=== PATIENT | female | born 1950 | race Caucasian/White ===

== ENCOUNTER → 2018-01-26 08:29 | Outpatient (CLI) | payer MEDICARE, SELFPAY ==
--- NOTE | 2018-01-26 08:32 | BI_ITS ---
MAMMOGRAPHY - BILATERAL SCREENING REASON FOR EXAM: Female, 67 years old. Routine annual screening examination. PERTINENT HISTORY: Non-contributory. Prior bilateral excisional breast biopsies. TECHNIQUE: Digital bilateral breast kristen (3D mammographic acquisition) in the CC and MLO projections. 2-D mediolateral oblique (MLO) and craniocaudad (CC) views of both breasts were obtained. CAD: Full Field Digital Mammography with Computer Added Detection was performed. COMPARISON: No comparison mammograms available at this time. If any prior films become available, an addendum to this report can be generated. FINDINGS: Breast Composition: The breasts are heterogeneously dense, which may obscure small masses. There are no dominant masses or suspicious calcifications. No other significant abnormalities are identified. BI/SCREENING MAMM (CAD), BILAT IMPRESSION: Negative screening mammogram. Yearly followup mammogram recommended. (A) ASSESSMENT CATEGORY: BIRADS Category 1: Negative. A letter regarding these results will be sent to the patient by the facility within 30 days. Approximately 10% of breast cancers are not detected by mammography. A normal mammogram should not delay biopsy of a clinically suspicious abnormality. [id number] Electronically Signed: Kvng Gonzalez MD at 11:05 EDT Tel [phone], Service support ,
--- NOTE | 2018-03-26 12:18 | WC ---
12/07/2017: Pre-Authorization faxed (15pp) to [facility] for adjunctive hyperbaric therapy. 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 Wiseman's office notified 12/16/17 with a request for him to write a Letter of Medical Necessity to be included in the appeal. During this time period, Dr. Wiseman's office contacted regarding the need for the above letter. 03/04/18: Letter of Medical Necessity received via fax. Medical Records compiled, Appeals letter composed. 03/12/18: 42 pages faxed to the [employer] Appeals Dept. @ 5:07 p.m. with receipt of same received @ 5:50 p.m. This fax included the following: Appeals Letter; Letter of Medical Necessity; Denial Letter; Demographics Sheet; Radiation Oncology Consult Notes; Hospital Discharge Summary; Radiation Treatment Summary; Follow-Up Office Notes; Hyperbaric Treatment Record from 2008; Wound History and Physical (HBO Consult-Dr. Ceja); Pan[employer]; HBO Treatment Orders, and Treatment plan. 03/26/18; Call made to [facility] for following-up on appeals sent 03/12. Informed [facility] has dismissed the appeal faxed March 12, 2018. The dismissal was based on timeliness (Greater than 60 days since the denial was issued (12/15/17)). Instructed to write a 'Letter of Reconsideration' to be sent to the Correspondence Department of [employer] [address] [address] [place] [address] I questioned the [employer] Rep. what the difference would be in this case, since ...they will dismiss it again! She said by sending it to this department, they are required to look at it. Reference # is [id number] (I will reference this number when corresponding with [employer]). I notified Dr. Wiseman's office immediately after being informed of their decision to dismiss before notifying you. I will try today to compose yet another letter and send it by 'snail mail' Thursday.
--- NOTE | 2018-05-03 09:20 | WC ---
Call received from Dr. Pablo Wiseman (Referring DMD, DDS) requesting update on insurance pre-authorization. Patient has now developed abcess with worsening condition. Brief update on insurance check was given. As previously noted, a Letter of Reconsideration was sent via certified mail directed to the [employer] Correspondence Department. This was sent 03/29/18. Stamp received 04/08/18 [place], [place]. Today's call [facility] until 04/15/18 (12 Business Days ago). Inquiry on how long review would take... told 30-60 days. This was made known as 'unacceptable'. Request made to expedite at this time; (5-7 days). Informed the agent the patient's condition is worsening awaiting HBO authorization. Reference # for this call: [id number] Dr. Wiseman's office informed of above. Requested current office notes from today's patient visit. Email also sent to the patient regarding the above.
--- NOTE | 2018-05-12 11:53 | WC ---
Addendum entered by Ildefonso Douglas 05/12/18 14:30: 24 pp of Medical Record Faxed to [facility] Pre-Authorization Department . Confirmation receipt received. Original Note: Addendum entered by Ildefonso Douglas 05/12/18 12:16: Agent contacting the Appeals Department regarding this case. New Pre-authorization is being opened in this case using all available information that has been previously sent. DOS is 05/12/18 through 07/19/18 with the proviso if more time is required, HMO will need contacted for the extension. Reference # [id number]. Plan is to 're-open' and submit a new Pre-Authorization for adjunctive HBO therapy. All Medical Record information pertaining to Ms. Garrett is to be resubmitted. Information to be included on the Fax Cover Sheet: Reference #; Patient Number; Facility Tax ID #; NPI #; CPT & ICD-10-CM Codes . 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 Informed Letter of Reconsideration is only used if services rendered have been denied (In this case, no services have been provided other than the Consultation). Requested information to perform a 'Qkkv-tu-Kcnr'. Referred to # . Informed Zjli-rg-Xrfm review is done within 5-days of original denialo
--- NOTE | 2018-05-21 10:33 | WC ---
Call received this @ 08:42 from [facility] regarding pre-authorization for adjunctive hyperbaric therapy. Request for services has been: Denied due to lack of support for services being requested Call reference #: [id number] Request for Ziad-en-Kqmx deadline is before Thursday05/25/18 @ 12:00 PM E-mail sent to Dr. Reynaldo Ceja, and phone call to referring physician; Dr. Pablo Wiseman, [place]. Aewb-rz-Mkhh review set up w/Dr. Wiseman Thursday @ 11:[address] Joe Garcia MD (General Surgeon).
--- NOTE | 2018-05-26 16:35 | WC ---
05/25/2018 Call received from Mrs. Garrett regarding HBO authorization. Mrs. Garrett was contacted by 'Jade' from [facility] and informed her HBO should not have been denied (Hpic-vn-Mrtg review with Dr. Joe Garcia MD and Dr. Franck Wiseman, DMD was scheduled @ 10:00 a.m.today after denial for Lack of Medical Support was issued 05/21/18. This was cancelled by the Insurance Co.: -- Information from [facility]th [facility] Committee Report; Hyperbaric Indications; pp.113-132 had been faxed to Dr. Garcia, and Dr. Wiseman in preparation for scheduled noyw-wg-iudr review). Authorization #[id number] w/DOS 05/24-06/23/18 has been given. VM message also received from Melissa' in Dr. Wiseman's office regarding the same message above. Dr. Wiseman's office notified that Mrs. Garrett will be starting HBO on 05/27 @ 08:00, and once daily for 30 sessions. Treatments planned and plotted out with 20th session to be on ThursdayJune 25. Oral surgery to be performed shortly after that so post-operative hyperbaric therapy can be completed before the end of the year. Projected date of completing therapy: 07/16/18. D.O.S will require adjusting to accommodate therapy dates. NOTE: This process began in late November.
--- NOTE | 2018-05-31 22:42 | PCM.HBO.PN ---
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 Progress: Today represents her second cycle and 3rd HBO treatment. Tolerance of hyperbaric oxygen therapy: Hyperbaric oxygen therapy was administered as per the facility's protocol. The patient tolerated hyperbaric oxygen therapy well without complaints or complications. Upon emergence from the hyperbaric chamber, the patient's vital signs remained stable. Patient was discharged in good condition. 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 The patient's mother at the age of 53 from a myocardial infarction. Smoking Status: Never smoker
== END ==
PROVIDERS: Family Provider Internal Medicine; PCP Internal Medicine; Visit Provider Internal Medicine
DX: Z12.31 Encounter for screening mammogram for malignant neoplasm of breast (principal)
CPT/HCPCS: 77063; 77067

== ENCOUNTER 2018-06-18 08:00 | Outpatient (RCR) | payer MEDICARE, SELFPAY ==
[2018-05-27 10:47] VITALS: BP 140/80; BP 141/82; PULSE 80; PULSE 86; RESP 18; TEMP 36; TEMP 36.1
--- NOTE | 2018-05-27 16:36 | PCM.HBO.PN ---
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 Progress: Today represents her first session in the cycle. Initial HBO treatment in 2008. She had 30 sessions without event. Tolerance of hyperbaric oxygen therapy: Hyperbaric oxygen therapy was administered as per the facility's protocol. The patient tolerated hyperbaric oxygen therapy well without complaints or complications. Upon emergence from the hyperbaric chamber, the patient's vital signs remained stable. Patient was discharged in good condition. 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 The patient's mother at the age of 53 from a myocardial infarction. Smoking Status: Never smoker Physical Exam Vital Signs Temp Pulse Resp BP 96.8 F L 86 18 141/82 H 05/27/18 10:47 05/27/18 10:47 05/27/18 10:47 05/27/18 10:47 General: Alert, Oriented x3, Cooperative, No apparent distress HEENT: Atraumatic, Normocephalic, TM's Clear Lungs: Normal air movement Psych/Mental Status: Normal Affect Assessment/Plan The patient tolerated hyperbaric oxygen therapy well, which will be continued as per the patient's medical plan.
--- NOTE | 2018-05-28 10:12 | PCM.HBO.PN ---
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 Progress: Today represents her first session in the cycle. Initial HBO treatment in 2008. She had 30 sessions without event. Tolerance of hyperbaric oxygen therapy: Hyperbaric oxygen therapy was administered as per the facility's protocol. The patient tolerated hyperbaric oxygen therapy well without complaints or complications. Upon emergence from the hyperbaric chamber, the patient's vital signs remained stable. Patient was discharged in good condition. 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 The patient's mother at the age of 53 from a myocardial infarction. Smoking Status: Never smoker Physical Exam Vital Signs Temp Pulse Resp BP 96.8 F L 86 18 141/82 H 05/27/18 10:47 05/27/18 10:47 05/27/18 10:47 05/27/18 10:47 Assessment/Plan The patient tolerated hyperbaric oxygen therapy well, which will be continued as per the patient's medical plan.
[2018-05-28 10:17] VITALS: RESP 16; TEMP 37.1
[2018-05-31 09:34] VITALS: BP 112/87; BP 128/68; PULSE 83; PULSE 86; RESP 16; RESP 18; TEMP 35.7; TEMP 37.2
[2018-06-01 11:02] VITALS: BP 134/92; BP 137/79; PULSE 83; PULSE 87; RESP 16; TEMP 36.2; TEMP 36.8
--- NOTE | 2018-06-01 12:18 | PCM.HBO.PN ---
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 Progress: The patient has previously undergone hyperbaric oxygen therapy in 2008. This represents the 4th such session in the current cycle. Tolerance of hyperbaric oxygen therapy: Hyperbaric oxygen therapy was administered as per the facility's protocol. The patient tolerated hyperbaric oxygen therapy well without complaints or complications. Upon emergence from the hyperbaric chamber, the patient's vital signs remained stable. Patient was discharged in good condition. 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 The patient's mother at the age of 53 from a myocardial infarction. Smoking Status: Never smoker Physical Exam Vital Signs Temp Pulse Resp BP 98.3 F 87 16 134/92 H 06/01/18 11:02 06/01/18 11:02 06/01/18 11:02 06/01/18 11:02 General: Alert, Oriented x3, Cooperative, No apparent distress, Well developed, Well nourished HEENT: Atraumatic, PERRLA, EOMI, Normocephalic Lungs: Normal air movement Psych/Mental Status: Normal Affect, Appropriate, Alert and oriented to time, place, person, mood and affect Assessment/Plan The patient appears to be tolerating hyperbaric oxygen therapy well, which will be continued as per the patient's medical plan.
[2018-06-02 10:01] VITALS: BP 132/86; PULSE 69; RESP 16; TEMP 36.9
--- NOTE | 2018-06-02 11:01 | PCM.HBO.PN ---
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 Progress: The patient has previously undergone hyperbaric oxygen therapy in 2008. This represents the 5th such session in the current cycle. Tolerance of hyperbaric oxygen therapy: Hyperbaric oxygen therapy was administered as per the facility's protocol. The patient tolerated hyperbaric oxygen therapy well without complaints or complications. Upon emergence from the hyperbaric chamber, the patient's vital signs remained stable. Patient was discharged in good condition. 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 The patient's mother at the age of 53 from a myocardial infarction. Smoking Status: Never smoker Physical Exam Vital Signs Temp Pulse Resp BP 98.4 F 69 16 132/86 H 06/02/18 10:01 06/02/18 10:01 06/02/18 10:01 06/02/18 10:01 General: Alert, Oriented x3, Cooperative, No apparent distress HEENT: Atraumatic, Normocephalic Lungs: Normal air movement Cardiovascular: Regular rate Psych/Mental Status: Normal Affect Assessment/Plan The patient appears to be tolerating hyperbaric oxygen therapy well, which will be continued as per the patient's medical plan.
[2018-06-03 12:03] VITALS: BP 134/78; BP 134/81; PULSE 79; PULSE 81; RESP 18; TEMP 37.2; TEMP 37.3
--- NOTE | 2018-06-03 12:42 | PCM.HBO.PN ---
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 Progress: The patient has previously undergone hyperbaric oxygen therapy in 2008. This represents the 6th such session in the current cycle. Tolerance of hyperbaric oxygen therapy: Hyperbaric oxygen therapy was administered as per the facility's protocol. The patient tolerated hyperbaric oxygen therapy well without complaints or complications. Upon emergence from the hyperbaric chamber, the patient's vital signs remained stable. Patient was discharged in good condition. 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 The patient's mother at the age of 53 from a myocardial infarction. Smoking Status: Never smoker Physical Exam Vital Signs Temp Pulse Resp BP 98.9 F 79 18 134/78 H 06/03/18 12:03 06/03/18 12:03 06/03/18 12:03 06/03/18 12:03 General: Alert, Oriented x3, Cooperative, No apparent distress HEENT: Atraumatic Lungs: Normal air movement Psych/Mental Status: Normal Affect Assessment/Plan The patient appears to be tolerating hyperbaric oxygen therapy well, which will be continued as per the patient's medical plan.
[2018-06-04 08:34] VITALS: BP 119/73; BP 143/92; PULSE 78; PULSE 84; RESP 16; RESP 18; TEMP 36.3; TEMP 36.9
--- NOTE | 2018-06-04 10:29 | PCM.HBO.PN ---
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 Progress: The patient has previously undergone hyperbaric oxygen therapy in 2008. This represents the 6th such session in the current cycle. Tolerance of hyperbaric oxygen therapy: Hyperbaric oxygen therapy was administered as per the facility's protocol. The patient tolerated hyperbaric oxygen therapy well without complaints or complications. Upon emergence from the hyperbaric chamber, the patient's vital signs remained stable. Patient was discharged in good condition. 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 The patient's mother at the age of 53 from a myocardial infarction. Smoking Status: Never smoker Physical Exam Vital Signs Temp Pulse Resp BP 97.3 F L 78 18 119/73 06/04/18 08:34 06/04/18 08:34 06/04/18 08:34 06/04/18 08:34 Assessment/Plan The patient appears to be tolerating hyperbaric oxygen therapy well, which will be continued as per the patient's medical plan.
[2018-06-07 08:45] VITALS: BP 121/84; BP 130/81; PULSE 83; PULSE 84; RESP 16; RESP 18; TEMP 36.3; TEMP 36.4
[2018-06-08 08:38] VITALS: BP 134/90; BP 140/85; PULSE 79; PULSE 80; RESP 18; TEMP 36.3; TEMP 36.7
--- NOTE | 2018-06-08 10:31 | PCM.HBO.PN ---
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 Progress: The patient has previously undergone hyperbaric oxygen therapy in 2008. This represents the 8th such session in the current cycle. Tolerance of hyperbaric oxygen therapy: Hyperbaric oxygen therapy was administered as per the facility's protocol. The patient tolerated hyperbaric oxygen therapy well without complaints or complications. Upon emergence from the hyperbaric chamber, the patient's vital signs remained stable. Patient was discharged in good condition. 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 The patient's mother at the age of 53 from a myocardial infarction. Smoking Status: Never smoker Physical Exam Vital Signs Temp Pulse Resp BP 97.3 F L 80 18 140/85 H 06/08/18 08:38 06/08/18 08:38 06/08/18 08:38 06/08/18 08:38 General: Alert, Oriented x3, Cooperative HEENT: Atraumatic Lungs: Clear to auscultation, Normal air movement Cardiovascular: Regular rate Psych/Mental Status: Normal Affect, Appropriate Assessment/Plan The patient appears to be tolerating hyperbaric oxygen therapy well, which will be continued as per the patient's medical plan. Code Visit 80175
--- NOTE | 2018-06-08 11:42 | PCM.HBO.PN ---
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 Progress: The patient has previously undergone hyperbaric oxygen therapy in 2008. This represents the 9th such session in the current cycle. Tolerance of hyperbaric oxygen therapy: Hyperbaric oxygen therapy was administered as per the facility's protocol. The patient tolerated hyperbaric oxygen therapy well without complaints or complications. Upon emergence from the hyperbaric chamber, the patient's vital signs remained stable. Patient was discharged in good condition. 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 The patient's mother at the age of 53 from a myocardial infarction. Smoking Status: Never smoker Physical Exam Vital Signs Temp Pulse Resp BP 97.3 F L 80 18 140/85 H 06/08/18 08:38 06/08/18 08:38 06/08/18 08:38 06/08/18 08:38 General: Alert, Oriented x3, Cooperative, No apparent distress, Well developed, Well nourished HEENT: Atraumatic, PERRLA, EOMI, Normocephalic Lungs: Normal air movement Psych/Mental Status: Normal Affect, Appropriate, Alert and oriented to time, place, person, mood and affect Assessment/Plan The patient appears to be tolerating hyperbaric oxygen therapy well, which will be continued as per the patient's medical plan.
[2018-06-09 08:30] VITALS: BP 133/94; BP 143/90; PULSE 78; PULSE 81; RESP 16; TEMP 37
--- NOTE | 2018-06-09 08:58 | PCM.HBO.PN ---
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 Progress: The patient has tolerated hyperbaric oxygen therapy well so far. Tolerance of hyperbaric oxygen therapy: Hyperbaric oxygen therapy was administered as per the facility's protocol. The patient tolerated hyperbaric oxygen therapy well without complaints or complications. Upon emergence from the hyperbaric chamber, the patient's vital signs remained stable. Patient was discharged in good condition. 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 The patient's mother at the age of 53 from a myocardial infarction. Smoking Status: Never smoker Physical Exam Vital Signs Temp Pulse Resp BP 97.3 F L 80 18 140/85 H 06/08/18 08:38 06/08/18 08:38 06/08/18 08:38 06/08/18 08:38 General: Alert, Oriented x3, Cooperative, No apparent distress HEENT: Atraumatic Lungs: Clear to auscultation Cardiovascular: Regular rate Psych/Mental Status: Normal Affect Assessment/Plan The patient appears to be tolerating hyperbaric oxygen therapy well, which will be continued as per the patient's medical plan.
[2018-06-14 09:09] VITALS: BP 126/81; PULSE 78; RESP 20; TEMP 37.4
--- NOTE | 2018-06-14 22:23 | PCM.HBO.PN ---
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 Progress: The patient has tolerated hyperbaric oxygen therapy well so far. Today represents her second cycle and 11th HBO treatment. Tolerance of hyperbaric oxygen therapy: Hyperbaric oxygen therapy was administered as per the facility's protocol. The patient tolerated hyperbaric oxygen therapy well without complaints or complications. Upon emergence from the hyperbaric chamber, the patient's vital signs remained stable. Patient was discharged in good condition. 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 The patient's mother at the age of 53 from a myocardial infarction. Smoking Status: Never smoker Physical Exam Vital Signs Temp Pulse Resp BP 99.3 F H 78 20 H 126/81 H 06/14/18 09:09 06/14/18 09:09 06/14/18 09:09 06/14/18 09:09
[2018-06-15 12:26] VITALS: BP 130/83; BP 138/82; PULSE 74; PULSE 83; RESP 16; RESP 18; TEMP 36.6; TEMP 37
--- NOTE | 2018-06-15 12:59 | PCM.HBO.PN ---
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 Progress: The patient has tolerated hyperbaric oxygen therapy well so far. Today's session represents the 12th such session of hyperbaric oxygen therapy. Tolerance of hyperbaric oxygen therapy: Hyperbaric oxygen therapy was administered as per the facility's protocol. The patient tolerated hyperbaric oxygen therapy well without complaints or complications. Upon emergence from the hyperbaric chamber, the patient's vital signs remained stable. Patient was discharged in good condition. 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 The patient's mother at the age of 53 from a myocardial infarction. Smoking Status: Never smoker Physical Exam Vital Signs Temp Pulse Resp BP 98.6 F 74 18 138/82 H 06/15/18 12:26 06/15/18 12:26 06/15/18 12:26 06/15/18 12:26 General: Alert, Oriented x3, Cooperative, No apparent distress, Well developed, Well nourished HEENT: Atraumatic, PERRLA, EOMI, Normocephalic Lungs: Normal air movement Psych/Mental Status: Normal Affect, Appropriate, Alert and oriented to time, place, person, mood and affect Assessment/Plan The patient appears to be tolerating hyperbaric oxygen therapy well, which will be continued as per the patient's medical plan.
--- NOTE | 2018-06-16 09:55 | PCM.HBO.PN ---
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 Progress: The patient has tolerated hyperbaric oxygen therapy well so far. Today's session represents the 13th such session of hyperbaric oxygen therapy. Tolerance of hyperbaric oxygen therapy: Hyperbaric oxygen therapy was administered as per the facility's protocol. The patient tolerated hyperbaric oxygen therapy well without complaints or complications. Upon emergence from the hyperbaric chamber, the patient's vital signs remained stable. Patient was discharged in good condition. 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 The patient's mother at the age of 53 from a myocardial infarction. Smoking Status: Never smoker Physical Exam Vital Signs Temp Pulse Resp BP 98.6 F 74 18 138/82 H 06/15/18 12:26 06/15/18 12:26 06/15/18 12:26 06/15/18 12:26 General: Alert, Oriented x3, Cooperative, No apparent distress HEENT: Atraumatic, Normocephalic Lungs: Clear to auscultation, Normal air movement Cardiovascular: Regular rate Psych/Mental Status: Normal Affect Assessment/Plan The patient appears to be tolerating hyperbaric oxygen therapy well, which will be continued as per the patient's medical plan.
[2018-06-16 10:20] VITALS: BP 121/76; PULSE 78; RESP 16; TEMP 37.2
--- NOTE | 2018-06-17 09:41 | PCM.HBO.PN ---
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 Progress: The patient has tolerated hyperbaric oxygen therapy well so far. Today's session represents the 14th such session of hyperbaric oxygen therapy. Tolerance of hyperbaric oxygen therapy: Hyperbaric oxygen therapy was administered as per the facility's protocol. The patient tolerated hyperbaric oxygen therapy well without complaints or complications. Upon emergence from the hyperbaric chamber, the patient's vital signs remained stable. Patient was discharged in good condition. 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 The patient's mother at the age of 53 from a myocardial infarction. Smoking Status: Never smoker Physical Exam Vital Signs Temp Pulse Resp BP 98.9 F 78 16 121/76 H 06/16/18 10:20 06/16/18 10:20 06/16/18 10:20 06/16/18 10:20 General: Alert, Oriented x3, Cooperative, No apparent distress HEENT: Atraumatic, Normocephalic, TM's Clear Lungs: Normal air movement Psych/Mental Status: Normal Affect Assessment/Plan The patient appears to be tolerating hyperbaric oxygen therapy well, which will be continued as per the patient's medical plan.
[2018-06-17 10:18] VITALS: BP 133/94; BP 136/94; PULSE 78; PULSE 80; RESP 16; TEMP 37; TEMP 37.1
--- NOTE | 2018-06-17 14:35 | WC ---
Call made to [facility] for extension to approved HBO Treatments. Original dates of service were for 05/24-06/23/18. Patient will not have 20th session until 06/25; Oral surgery scheduled for 06/28 with HBO Tx (10) to resume 06/29/18 through 07/16/18. Spoke w/Lesly from [facility]. Extension granted till Reference #[id number]
[2018-06-18 08:28] VITALS: BP 132/83; BP 139/97; PULSE 79; PULSE 84; RESP 16; RESP 18; TEMP 36.4; TEMP 36.6
--- NOTE | 2018-06-18 11:08 | PCM.HBO.PN ---
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 Progress: The patient has tolerated hyperbaric oxygen therapy well so far. Today's session represents the 14th such session of hyperbaric oxygen therapy. Tolerance of hyperbaric oxygen therapy: Hyperbaric oxygen therapy was administered as per the facility's protocol. The patient tolerated hyperbaric oxygen therapy well without complaints or complications. Upon emergence from the hyperbaric chamber, the patient's vital signs remained stable. Patient was discharged in good condition. 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 The patient's mother at the age of 53 from a myocardial infarction. Smoking Status: Never smoker Physical Exam Vital Signs Temp Pulse Resp BP 97.8 F 79 18 132/83 H 06/18/18 08:28 06/18/18 08:28 06/18/18 08:28 06/18/18 08:28 Assessment/Plan The patient appears to be tolerating hyperbaric oxygen therapy well, which will be continued as per the patient's medical plan.
== END 2018-06-18 23:59 ==
LOC: WC 08:00
PROVIDERS: Family Provider Internal Medicine; PCP Internal Medicine; Visit Provider Internal Medicine
DX: M27.2 Inflammatory conditions of jaws (principal); Y84.2 Radiological procedure and radiotherapy as the cause of abnormal reaction of the patient, or of later complication, without mention of misadventure at the time of the procedure; K21.9 Gastro-esophageal reflux disease without esophagitis; I10 Essential (primary) hypertension; E78.5 Hyperlipidemia, unspecified; Z85.819 Personal history of malignant neoplasm of unspecified site of lip, oral cavity, and pharynx; Z79.899 Other long term (current) drug therapy
CPT/HCPCS: 99183; G0277

== ENCOUNTER 2018-07-14 09:00 | Outpatient (RCR) | payer MEDICARE, SELFPAY ==
[2018-06-19 01:58] VITALS: BP 139/97; PULSE 84; RESP 16; TEMP 36.4
[2018-06-21 09:16] VITALS: BP 145/90; BP 146/83; PULSE 79; RESP 16; RESP 18; TEMP 36.7
[2018-06-22 09:48] VITALS: BP 123/76; BP 143/96; PULSE 78; PULSE 85; RESP 18; TEMP 36.8; TEMP 37.3
--- NOTE | 2018-06-22 12:14 | PCM.HBO.PN ---
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 Today's session represents the 17th such session of hyperbaric oxygen therapy. Tolerance of hyperbaric oxygen therapy: Hyperbaric oxygen therapy was administered as per the facility protocol. The patient tolerated hyperbaric oxygen therapy well, without complaints or complications. Upon emergence from the hyperbaric chamber, the patient's vital signs remained stable. The patient was discharged in good condition. 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 The patient's mother at the age of 53 from a myocardial infarction. Smoking Status: Never smoker Physical Exam Vital Signs Temp Pulse Resp BP 99.1 F 85 18 123/76 H 06/22/18 09:48 06/22/18 09:48 06/22/18 09:48 06/22/18 09:48 General: Alert, Oriented x3, Cooperative, No apparent distress, Well developed, Well nourished HEENT: Atraumatic, PERRLA, EOMI, Normocephalic Lungs: Normal air movement Psych/Mental Status: Normal Affect, Appropriate, Alert and oriented to time, place, person, mood and affect Assessment/Plan The patient appears to be tolerating hyperbaric oxygen therapy well, which will be continued as per the patient's medical plan.
--- NOTE | 2018-06-23 08:28 | PCM.HBO.PN ---
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 Today's session represents the 18th such session of hyperbaric oxygen therapy. Tolerance of hyperbaric oxygen therapy: Hyperbaric oxygen therapy was administered as per the facility protocol. The patient tolerated hyperbaric oxygen therapy well, without complaints or complications. Upon emergence from the hyperbaric chamber, the patient's vital signs remained stable. The patient was discharged in good condition. 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 The patient's mother at the age of 53 from a myocardial infarction. Smoking Status: Never smoker Physical Exam Vital Signs Temp Pulse Resp BP 99.1 F 85 18 123/76 H 06/22/18 09:48 06/22/18 09:48 06/22/18 09:48 06/22/18 09:48 General: Alert, Oriented x3, Cooperative, No apparent distress HEENT: Atraumatic, TM's Clear Lungs: Clear to auscultation, Normal air movement, No rhonchi, No wheeze, No rales Cardiovascular: Regular rate, Regular Rhythm, Normal S1, Normal S2, No murmurs Psych/Mental Status: Normal Affect, Appropriate, Alert and oriented to time, place, person, mood and affect Assessment/Plan The patient appears to be tolerating hyperbaric oxygen therapy well, which will be continued as per the patient's medical plan.
[2018-06-23 10:11] VITALS: BP 131/96; BP 141/94; PULSE 78; PULSE 89; RESP 16; TEMP 36.9; TEMP 37.2
[2018-06-24 08:22] VITALS: BP 126/76; BP 142/96; PULSE 80; PULSE 87; RESP 16; RESP 18; TEMP 36.5; TEMP 36.6
--- NOTE | 2018-06-24 08:45 | PCM.HBO.PN ---
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 Today's session represents the 19th such session of hyperbaric oxygen therapy. Tolerance of hyperbaric oxygen therapy: Hyperbaric oxygen therapy was administered as per the facility protocol. The patient tolerated hyperbaric oxygen therapy well, without complaints or complications. Upon emergence from the hyperbaric chamber, the patient's vital signs remained stable. The patient was discharged in good condition. 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 The patient's mother at the age of 53 from a myocardial infarction. Smoking Status: Never smoker Physical Exam Vital Signs Temp Pulse Resp BP 98.9 F 89 16 141/94 H 06/23/18 10:11 06/23/18 10:11 06/23/18 10:11 06/23/18 10:11 General: Alert, Oriented x3, Cooperative, No apparent distress HEENT: Atraumatic, TM's Clear Lungs: Clear to auscultation, Normal air movement, No rhonchi, No wheeze, No rales Cardiovascular: Regular rate, Regular Rhythm Psych/Mental Status: Normal Affect, Appropriate, Alert and oriented to time, place, person, mood and affect Assessment/Plan The patient appears to be tolerating hyperbaric oxygen therapy well, which will be continued as per the patient's medical plan.
[2018-06-25 08:42] VITALS: BP 114/84; BP 142/87; PULSE 73; PULSE 79; RESP 16; RESP 18; TEMP 36.3; TEMP 36.5
--- NOTE | 2018-06-25 09:37 | PCM.HBO.PN ---
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 Today's session represents the 19th such session of hyperbaric oxygen therapy. Tolerance of hyperbaric oxygen therapy: Hyperbaric oxygen therapy was administered as per the facility protocol. The patient tolerated hyperbaric oxygen therapy well, without complaints or complications. Upon emergence from the hyperbaric chamber, the patient's vital signs remained stable. The patient was discharged in good condition. 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 The patient's mother at the age of 53 from a myocardial infarction. Smoking Status: Never smoker Physical Exam Vital Signs Temp Pulse Resp BP 97.7 F L 73 18 114/84 H 06/25/18 08:42 06/25/18 08:42 06/25/18 08:42 06/25/18 08:42 Assessment/Plan The patient appears to be tolerating hyperbaric oxygen therapy well, which will be continued as per the patient's medical plan.
--- NOTE | 2018-06-29 08:14 | PCM.HBO.PN ---
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 Today's session represents the 21st such session of hyperbaric oxygen therapy. Tolerance of hyperbaric oxygen therapy: Hyperbaric oxygen therapy was administered as per the facility protocol. The patient tolerated hyperbaric oxygen therapy well, without complaints or complications. Upon emergence from the hyperbaric chamber, the patient's vital signs remained stable. The patient was discharged in good condition. 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 The patient's mother at the age of 53 from a myocardial infarction. Smoking Status: Never smoker Physical Exam Vital Signs Temp Pulse Resp BP 97.7 F L 73 18 114/84 H 06/25/18 08:42 06/25/18 08:42 06/25/18 08:42 06/25/18 08:42 General: Alert, Oriented x3, Cooperative, No apparent distress HEENT: Atraumatic, TM's Clear Lungs: Clear to auscultation, Normal air movement Cardiovascular: Regular rate, Regular Rhythm Psych/Mental Status: Normal Affect, Appropriate, Alert and oriented to time, place, person, mood and affect Assessment/Plan The patient appears to be tolerating hyperbaric oxygen therapy well, which will be continued as per the patient's medical plan.
[2018-06-29 10:41] VITALS: BP 119/77; BP 126/83; PULSE 75; PULSE 80; RESP 18; TEMP 36.9
--- NOTE | 2018-06-30 10:38 | PCM.HBO.PN ---
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 Tolerance of hyperbaric oxygen therapy: Hyperbaric oxygen therapy was administered as per the facility protocol. The patient tolerated hyperbaric oxygen therapy well, without complaints or complications. Upon emergence from the hyperbaric chamber, the patient's vital signs remained stable. The patient was discharged in good condition. 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 The patient's mother at the age of 53 from a myocardial infarction. Smoking Status: Never smoker Physical Exam Vital Signs Temp Pulse Resp BP 98.4 F 75 18 126/83 H 06/29/18 10:41 06/29/18 10:41 06/29/18 10:41 06/29/18 10:41 General: Alert, Oriented x3, Cooperative, No apparent distress HEENT: Atraumatic, Normocephalic Lungs: Normal air movement Cardiovascular: Regular rate Psych/Mental Status: Normal Affect Assessment/Plan The patient appears to be tolerating hyperbaric oxygen therapy well, which will be continued as per the patient's medical plan.
[2018-06-30 12:23] VITALS: BP 126/71; BP 137/89; PULSE 75; PULSE 79; RESP 16; TEMP 36.5; TEMP 36.7
[2018-07-01 09:51] VITALS: BP 123/79; BP 138/96; PULSE 84; PULSE 90; RESP 16; TEMP 36.6; TEMP 36.9
--- NOTE | 2018-07-01 11:28 | PCM.HBO.PN ---
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 Tolerance of hyperbaric oxygen therapy: Hyperbaric oxygen therapy was administered as per the facility protocol. The patient tolerated hyperbaric oxygen therapy well, without complaints or complications. Upon emergence from the hyperbaric chamber, the patient's vital signs remained stable. The patient was discharged in good condition. 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 The patient's mother at the age of 53 from a myocardial infarction. Smoking Status: Never smoker Physical Exam Vital Signs Temp Pulse Resp BP 98.4 F 84 16 123/79 H 07/01/18 09:51 07/01/18 09:51 07/01/18 09:51 07/01/18 09:51 General: Alert, Oriented x3, Cooperative, No apparent distress HEENT: Atraumatic, Normocephalic Lungs: Clear to auscultation, Normal air movement Cardiovascular: Regular rate Psych/Mental Status: Normal Affect Assessment/Plan The patient appears to be tolerating hyperbaric oxygen therapy well, which will be continued as per the patient's medical plan.
[2018-07-02 08:31] VITALS: BP 131/79; BP 153/92; PULSE 67; PULSE 71; RESP 16; TEMP 36.1; TEMP 36.6
--- NOTE | 2018-07-02 09:53 | PCM.HBO.PN ---
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 Tolerance of hyperbaric oxygen therapy: Hyperbaric oxygen therapy was administered as per the facility protocol. The patient tolerated hyperbaric oxygen therapy well, without complaints or complications. Upon emergence from the hyperbaric chamber, the patient's vital signs remained stable. The patient was discharged in good condition. 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 The patient's mother at the age of 53 from a myocardial infarction. Smoking Status: Never smoker Physical Exam Vital Signs Temp Pulse Resp BP 98.4 F 84 16 123/79 H 07/01/18 09:51 07/01/18 09:51 07/01/18 09:51 07/01/18 09:51 Assessment/Plan The patient appears to be tolerating hyperbaric oxygen therapy well, which will be continued as per the patient's medical plan.
[2018-07-05 10:23] VITALS: BP 118/84; BP 134/84; PULSE 77; PULSE 82; RESP 16; TEMP 36.6; TEMP 36.8
--- NOTE | 2018-07-05 19:17 | HBO.PN.PCM_ITS ---
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 Today represents her second cycle and 25th HBO treatment. Tolerance of hyperbaric oxygen therapy: Hyperbaric oxygen therapy was administered as per the facility's protocol. The patient tolerated hyperbaric o xygen therapy well without complaints or complications. Upon emergence from the hyperbaric chamber, the patient's vital signs remained stable. Patient was discharged in good condition. 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 The patient's mother at the age of 53 from a myocardial infarction. Smoking Status: Never smoker Physical Exam Vital Signs Temp Pulse Resp BP 98.2 F 82 16 118/84 H 07/05/18 10:23 07/05/18 10:23 07/05/18 10:23 07/05/18 10:23
[2018-07-06 08:16] VITALS: BP 117/79; BP 123/90; PULSE 80; RESP 16; TEMP 36.4; TEMP 37.1
--- NOTE | 2018-07-06 12:47 | PCM.HBO.PN ---
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 Today's session represents the 26th such session of hyperbaric oxygen therapy. Tolerance of hyperbaric oxygen therapy: Hyperbaric oxygen therapy was administered as per the facility protocol. The patient tolerated hyperbaric oxygen therapy well, without complaints or complications. Upon emergence from the hyperbaric chamber, the patient's vital signs remained stable. The patient was discharged in good condition. 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 The patient's mother at the age of 53 from a myocardial infarction. Smoking Status: Never smoker Physical Exam Vital Signs Temp Pulse Resp BP 98.7 F 80 16 117/79 07/06/18 08:16 07/06/18 08:16 07/06/18 08:16 07/06/18 08:16 General: Alert, Oriented x3, Cooperative, No apparent distress, Well developed, Well nourished HEENT: Atraumatic, PERRLA, EOMI, Normocephalic Lungs: Normal air movement Psych/Mental Status: Normal Affect, Appropriate, Alert and oriented to time, place, person, mood and affect Assessment/Plan The patient appears to be tolerating hyperbaric oxygen therapy well, which will be continued as per the patient's medical plan.
[2018-07-07 08:23] VITALS: BP 128/75; BP 130/94; PULSE 87; PULSE 91; RESP 16; RESP 18; TEMP 36.6; TEMP 36.8
--- NOTE | 2018-07-07 08:52 | PCM.HBO.PN ---
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 Today's session represents the 27th such session of hyperbaric oxygen therapy. Tolerance of hyperbaric oxygen therapy: Hyperbaric oxygen therapy was administered as per the facility protocol. The patient tolerated hyperbaric oxygen therapy well, without complaints or complications. Upon emergence from the hyperbaric chamber, the patient's vital signs remained stable. The patient was discharged in good condition. 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 The patient's mother at the age of 53 from a myocardial infarction. Smoking Status: Never smoker Physical Exam Vital Signs Temp Pulse Resp BP 98.7 F 80 16 117/79 07/06/18 08:16 07/06/18 08:16 07/06/18 08:16 07/06/18 08:16 General: Alert, Oriented x3, Cooperative, No apparent distress HEENT: Atraumatic, Normocephalic Lungs: Normal air movement Psych/Mental Status: Normal Affect Assessment/Plan The patient appears to be tolerating hyperbaric oxygen therapy well, which will be continued as per the patient's medical plan.
[2018-07-08 08:25] VITALS: BP 113/75; BP 125/78; PULSE 78; PULSE 80; RESP 16; RESP 18; TEMP 36.8
--- NOTE | 2018-07-08 08:49 | PCM.HBO.PN ---
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 Today's session represents the 28th such session of hyperbaric oxygen therapy. Tolerance of hyperbaric oxygen therapy: Hyperbaric oxygen therapy was administered as per the facility protocol. The patient tolerated hyperbaric oxygen therapy well, without complaints or complications. Upon emergence from the hyperbaric chamber, the patient's vital signs remained stable. The patient was discharged in good condition. 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 The patient's mother at the age of 53 from a myocardial infarction. Smoking Status: Never smoker Physical Exam Vital Signs Temp Pulse Resp BP 98.3 F 80 18 113/75 07/08/18 08:25 07/08/18 08:25 07/08/18 08:25 07/08/18 08:25 General: Alert, Oriented x3, Cooperative, No apparent distress HEENT: Atraumatic, Normocephalic, TM's Clear Lungs: Normal air movement Psych/Mental Status: Normal Affect Assessment/Plan The patient appears to be tolerating hyperbaric oxygen therapy well, which will be continued as per the patient's medical plan.
[2018-07-09 08:23] VITALS: BP 137/90; BP 146/95; PULSE 87; PULSE 93; RESP 16; RESP 18; TEMP 36.5; TEMP 36.9
--- NOTE | 2018-07-09 12:14 | PCM.HBO.PN ---
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 Today's session represents the 28th such session of hyperbaric oxygen therapy. Tolerance of hyperbaric oxygen therapy: Hyperbaric oxygen therapy was administered as per the facility protocol. The patient tolerated hyperbaric oxygen therapy well, without complaints or complications. Upon emergence from the hyperbaric chamber, the patient's vital signs remained stable. The patient was discharged in good condition. 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 The patient's mother at the age of 53 from a myocardial infarction. Smoking Status: Never smoker Physical Exam Vital Signs Temp Pulse Resp BP 98.5 F 93 18 137/90 H 07/09/18 08:23 07/09/18 08:23 07/09/18 08:23 07/09/18 08:23 Assessment/Plan The patient appears to be tolerating hyperbaric oxygen therapy well, which will be continued as per the patient's medical plan.
[2018-07-14 08:32] VITALS: BP 138/80; BP 150/89; PULSE 81; PULSE 90; RESP 16; TEMP 36.5; TEMP 36.7
--- NOTE | 2018-07-14 10:46 | PCM.HBO.PN ---
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 Today represents her final treatment in the cycle. Tolerance of hyperbaric oxygen therapy: Hyperbaric oxygen therapy was administered as per the facility protocol. The patient tolerated hyperbaric oxygen therapy well, without complaints or complications. Upon emergence from the hyperbaric chamber, the patient's vital signs remained stable. The patient was discharged in good condition. 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 The patient's mother at the age of 53 from a myocardial infarction. Smoking Status: Never smoker Physical Exam Vital Signs Temp Pulse Resp BP 97.7 F L 81 16 138/80 H 07/14/18 08:32 07/14/18 08:32 07/14/18 08:32 07/14/18 08:32 General: Alert, Oriented x3, Cooperative, No apparent distress HEENT: Atraumatic, Normocephalic Lungs: Normal air movement Cardiovascular: Regular rate Psych/Mental Status: Normal Affect Assessment/Plan The patient tolerated hyperbaric oxygen therapy well without any concerns. Today represents her final treatment in this cycle. Continue follow-up with her physicians. Advised to call with any questions or concerns.
--- OUTSIDE RECORDS SUMMARY | 2018-08-14 08:25 | XMS RPT_ITS ---
:1950 Author Organization OHIP Support Name Relationship Address Phone DYLAN GALLEGO Unavailable [address] + [place] [address] R Unavailable Unavailable Unavailable DYLAN GALLEGO Unavailable [address] + [place] [address] R Unavailable Unavailable Unavailable DYLAN GALLEGO Unavailable [address] + [place] [address] R Unavailable Unavailable Unavailable DYLAN GALLEGO Unavailable [address] + [place] [address] R Unavailable Unavailable Unavailable DYLAN GALLEGO Unavailable [address] + [place] [address] R Unavailable Unavailable Unavailable DYLAN GALLEGO Unavailable [address] + [place] [address] R Unavailable Unavailable Unavailable DYLAN GALLEGO Unavailable [address] + [place] [address] R Unavailable Unavailable Unavailable DYLAN GALLEGO Unavailable [address] + [place] [address] R Unavailable Unavailable Unavailable DYLAN GALLEGO Unavailable [address] + [place] [address] R Unavailable Unavailable Unavailable DYLAN GALLEGO Unavailable [address] + [place] [address] R Unavailable Unavailable Unavailable DYLAN GALLEGO Unavailable [address] + [place] [address] R Unavailable Unavailable Unavailable DYLAN GALLEGO Unavailable [address] + [place] [address] R Unavailable Unavailable Unavailable GALLEGO, DYLAN Unavailable [address] + [place] [address] R Unavailable Unavailable Unavailable GALLEGOGHAZALAEN Unavailable [address] + [place] [address] R Unavailable Unavailable Unavailable GHAZALA GALLEGOEN Unavailable [address] + [place] [address] R Unavailable Unavailable Unavailable DYLAN GALLEGO Unavailable [address] + [place] [address] R Unavailable Unavailable Unavailable Care Team Providers Name Role Phone GANTA, LORI Attending Unavailable GANTA, LORI Referring Unavailable GANTA, LORI Referring Unavailable GANTA, LORI Referring Unavailable Oleghe, Efewongbe Attending Unavailable Oleghe, Efewongbe Referring Unavailable Oleghe, Efewongbe Attending Unavailable Oleghe, Efewongbe Referring Unavailable Candy Pruitt Attending Unavailable Oleghe, Efewongbe Referring Unavailable Candy Pruitt Attending Unavailable Oleghe, Efewongbe Referring Unavailable Reynaldo Ceja Attending Unavailable Ganta, Lori Primary Care Unavailable Ganta, Lori Attending Unavailable Ganta, Lori Primary Care Unavailable Oleghe, Efewongbe Attending Unavailable Ganta, Lori Primary Care Unavailable Jessica Barnett Attending Unavailable Ganta, Lori Primary Care Unavailable Oleghe, Efewongbe Consulting Unavailable Oleghe, Efewongbe Attending Unavailable Oleghe, Efewongbe Referring Unavailable Oleghe, Efewongbe Attending Unavailable Oleghe, Efewongbe Referring Unavailable Oleghe, Efewongbe Attending Unavailable Oleghe, Efewongbe Referring Unavailable Oleghe, Efewongbe Attending Unavailable Oleghe, Efewongbe Referring Unavailable Oleghe, Efewongbe Attending Unavailable Ganta, Lori Primary Care Unavailable Candy Pruitt Attending Unavailable Ganta, Lori Primary Care Unavailable Oleghe, Efewongbe Consulting Unavailable Joe De Jesus Attending Unavailable Ganta, Lori Primary Care Unavailable Ganta, Lori Consulting Unavailable Joe De Jesus Attending Unavailable Ganta, Lori Primary Care Unavailable Oleghe, Efewongbe Consulting Unavailable PROBLEMS PROBLEMS DATE TYPE CONDITION / CODE ATTENDING STATUS SOURCE 07/07/2018 Unknown M27.8 - Other Pruitt, Active [facility] specified diseases [facility] M27.8(ICD-10) Repository 07/07/2018 Unknown 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, 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, Hospital unspecified bone / Repository M87.30(ICD-10) 06/29/2018 Unknown 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, 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 / [facility] M27.2(ICD-10) Hospital Repository 06/27/2018 Unknown Z12.31 - Encounter Joe De Jesus Active [facility] for screening [facility] mammogram for Hospital malignant neoplasm Repository of breast / Z12.31(ICD-10) 10/09/2015 Active Postprocedural NA Active [facility] hypothyroidism / [facility] Main E89.0(ICD-10) [place] Repository 12/07/2017 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 [facility] Main therapy / [facility] Z79.899(ICD-10) Repository 12/07/2017 Active Unknown / LORI PERALTA Active [facility] UNK(Unknown) [facility] Main [place] Repository PROCEDURES PROCEDURES No Procedure Records FoundRESULTS RESULTS CNPTOUTREACH Observed: 06/01/2018 Status: COMPLETED Source: [place] 12:00 AM [facility]INIC MAIN [facility]US REPOSITORY Patient Outreach (FAMPST) GARRY GALLEGO ([id number]) 1950 F Date Time Provider Department 06/01/18 LORI PERALTA FAMPST During your visit today, we recorded the following information about you: Allergies As of Date: 06/01/2018 Noted Allergy Reaction FOSAMAX (ALENDRONATE SODIUM) 10/16/2006 5 - Intolerance 8 - GI Upset ACTONEL (RISEDRONATE SODIUM) 01/22/2016 17 - Myalgia Comments: Feels sick on the medication and does not want to take it. Patient denies taking this medication as of 04/16/2016 BONIVA (IBANDRONATE) 05/02/2008 8 - GI Upset Date Reviewed: 12/07/2017 Reviewed by: Ivory Thomson LPN - Fully Assessed Visit Diagnosis:Medication management [Z79.899] Order(s):BASIC METABOLIC PNL [SQBMP] Order #: [id number] FUTURE Prescriptions as of 06/01/2018 Sig: LEVOTHYROXINE 75 MCG TABLET Take 1 tablet by mouth once d* RANITIDINE 150 MG CAPSULE TAKE ONE CAPSULE BY MOUTH AT * SIMVASTATIN 20 MG TABLET Take 1 tablet by mouth daily * X AMITRIPTYLINE 50 MG TABLET Take 1 tablet by mouth daily * X AMLODIPINE 5 MG TABLET Take 1 tablet by mouth once d* Problem List As Of Date 06/01/2018 Noted Resolved EAR AND HEARING EXAM [V72.1] INVALID FOR* Personal history of malignant neoplasm of other*INVALID FOR*12/02/2013 Radiotherapy follow-up examination [Z09] INVALID FOR*12/02/2013 Chemotherapy follow-up examination [Z09] INVALID FOR*12/02/2013 Malignant neoplasm of cheek mucosa (HCC) [C06.0]INVALID FOR*12/02/2013 Secondary and unspecified malignant neoplasm of*INVALID FOR*12/02/2013 Other Speech Disturbance [R47.89] INVALID FOR* Postablative hypothyroidism [E89.0] INVALID FOR* More... More... 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 History of cancer surgery [Z98.890] INVALID FOR* Personal history of radiation therapy [Z92.3] INVALID FOR* MALIG AMARA LYMPH-HEAD/NECK [C77.0] INVALID FOR*10/09/2015 Essential hypertension [I10] INVALID FOR* More... Osteoporosis [M81.0] INVALID FOR* More... Gastroesophageal reflux disease without esophag*INVALID FOR* More... Encounter Status:Closed by [employer], PRODUSER on 07/02/18 TSH Collected: 02/08/2018 Status: F Source: [place] 1:46 PM [facility] MAIN CAMPUS REPOSITORY TYPE CODE TESTS RESULT OUT OF RANGE REFERENCE UNITS LAB TSH 0.400-5.500 uU/mL TSH 2.840 Performed By: #### TSH #### [facility] [address] [place] [address] SCREENING MAMM (CAD), Observed: 01/26/2018 Status: F Source: [place] 8:32 AM [facility] REPOSITORY [facility] [address] [place] [address] SCREENING MAMM (CAD), BILAT MR#: [id number] Acct: [id number] Name: GARRY GALLEGO Rep #: [id number] : 1950 F 67 From: Kvng Gonzalez MD PCP: Lori Peralta MD Status: REG CLI Study: SCREENING MAMM (CAD), BILAT Date of Exam: 01/26/18 Exam# [id number] Ordering Dr: Lori Peralta MD ADDENDUM by Kvng Gonzalez MD on 01/28/18 at 1518 BI/SCREENING MAMM (CAD), BILAT 01/28/18 1525 Date cc: Lori Peralta MD * Signed ADDENDUM by Kvng Gonzalez MD on 01/28/18 at 1518 ADDENDUM This is an addendum report. Prior ocular examination dated June 30, 2016 has been made available. Stable benign-appearing bilateral axillary lymph nodes. There has been no change since prior study. Electronically Signed: Kvng Gonzalez MD at 15:18 EDT Tel [phone], Service support , 01/28/18 1518 Date cc: Lori Peralta MD * Signed MAMMOGRAPHY - BILATERAL SCREENING REASON FOR EXAM: Female, 67 years old. Routine annual screening examination. PERTINENT HISTORY: Non-contributory. Prior bilateral excisional breast biopsies. TECHNIQUE: Digital bilateral breast kristen (3D mammographic acquisition) in the CC and MLO projections. 2-D mediolateral oblique (MLO) and craniocaudad (CC) views of both breasts were obtained. CAD: Full Field Digital Mammography with Computer Added Detection was performed. COMPARISON: No comparison mammograms available at this time. If any prior films become available, an addendum to this report can be generated. FINDINGS: Breast Composition: The breasts are heterogeneously dense, which may obscure small masses. There are no dominant masses or suspicious calcifications. No other significant abnormalities are identified. BI/SCREENING MAMM (CAD), BILAT IMPRESSION: Negative screening mammogram. Yearly followup mammogram recommended. (A) ASSESSMENT CATEGORY: BIRADS Category 1: Negative. A letter regarding these results will be sent to the patient by the facility within 30 days. Approximately 10% of breast cancers are not detected by mammography. A normal mammogram should not delay biopsy of a clinically suspicious abnormality. [id number] Electronically Signed: Kvng Gonzalez MD at 11:05 EDT Tel [phone], Service support , CC: Lori Peralta MD [employer]: Signed LIPID PANEL, BASIC Collected: 12/07/2017 Status: F Source: [place] 9:50 AM [facility] MAIN CAMPUS REPOSITORY TYPE CODE TESTS RESULT OUT OF REFERENCE UNITS RANGE LAB CHOL <200 mg/dL Cholesterol 148 Result Comment: <200 mg/dL, Desirable 200-239 mg/dL, Borderline high >239 mg/dL, High LAB TRIGLY <150 mg/dL Triglyceride 77 Result Comment: <150 mg/dL, Normal 150-199 mg/dL, Borderline high 200-499 mg/dL, High >499 mg/dL, Very high LAB HDL >39 mg/dL HDL-Cholesterol 74 Result Comment: 40-59 mg/dL, Acceptable >59 mg/dL, High: Negative risk factor for coronary heart disease <40 mg/dL, Low: Positive risk factor for coronary heart disease LAB LDL <100 mg/dL LDL-Cholesterol 59 Result Comment: <100 mg/dL, Optimal 100-129 mg/dL, Near optimal/above optimal 130-159 mg/dL, Borderline high 160-189 mg/dL, High >189 mg/dL, Very high Secondary prevention optimal LDL Cholesterol levels are recommended to be < 70 mg/dL LAB NONHDL <130 mg/dL Non HDL Cholesterol 74 Result Comment: <130 mg/dL, Optimal 130-159 mg/dL, Near optimal/above optimal 160-189 mg/dL, Borderline high 190-219 mg/dL, High >219 mg/dL, Very high Secondary prevention optimal non HDL Cholesterol levels are recommended to be < 100 mg/dL LAB FT hrs Fasting Time 12 LAB VLDL <30 mg/dL VLDL Cholesterol 15 LAB TCHDL <5.10 TC:HDL Ratio 2.00 LAB LDLHDL <2.54 LDL:HDL Ratio 0.80 Result Comment: Reference: 1. National Cholesterol Education Program ATP III Guideline At-A-Glance Quick Desk Reference: National Heart, Lung, and Blood [place]. National Institutes of Health. 2001: NIH Publication No. 01-3305. 2. An International Atherosclerosis Society position paper: global recommendations for the management of dyslipidemia: executive summary, Atherosclerosis. 2014: 232(2):410-413. Performed By: #### LIPB #### [facility] [address] [id number] TSH Collected: 12/07/2017 Status: F Source: [place] 9:50 AM [facility] REPOSITORY TYPE CODE TESTS RESULT OUT OF RANGE REFERENCE UNITS LAB TSH 0.400-5.500 uU/mL High TSH 12.380 Performed By: #### TSH #### [facility] [address] [place], [place] [address] PROGRESS Observed: 12/07/2017 Status: COMPLETED Source: [place] 9:13 AM [facility] REPOSITORY HNO ID: [id number] Author: Lori Peralta Service: (none) Author Type: Physician Type: Progress Notes Filed: 12/07/2017 10:44 AM Note Text: Reason for Visit Patient presents with: Established Patient: 6 mnth follow up- refills Garry Gallego is a 67 year old female who presents here today for Above Complaints.. Health Maintenance DTAP,TDAP,TD(1 - Tdap) MAMMOGRAM HPI She had severe radiation in the past so she would have to have a scan every 4 months due to dental issues.... So she decided not to do the risedronate. She will be undergoing hyperbaric treatment She has got a pill box and gotten herself organized and will start taking her pills would need to recheck the tsh. Has given up sugars and milk products, her reflux is resovled. ? BP is well controlled on current regimen of medicines which is tolerated well. No significant side effects. Lipids are normal, reviewed test results with patient Who takes medications regularly and has no side effects. No problem-specific Assessment AND Plan notes found for this encounter. PAST MEDICAL HISTORY Diagnosis Date - Chemotherapy follow-up examination - EAR AND HEARING EXAM 08/20/2005 - Hyperlipidemia - Hypertension - Hypothyroidism s/p radioactive iodine for hyperthyroidism - Malignant neoplasm of cheek mucosa (HCC) - Personal history of malignant neoplasm of other and unspecified parts of oral cavity and pharynx - Radiotherapy follow-up examination - Secondary and unspecified malignant neoplasm of lymph nodes of head, face, and neck - Sleep disturbances On amitriptyline for anxiety induced insomnia - Unspecified gingival and periodontal disease PAST SURGICAL HISTORY Procedure Laterality Date - CARPAL TUNNEL Bilateral - NEUROPLASTY/TRANSPOSITION,ULNAR NV/ELBOW Left - PAST SURGICAL HISTORY OF 07/2005 Esophagoscopy, examination under anesthesia oral cavity/oropharynx with multiple left buccal biopsies/tumor mapping and rigid bronchoscopy. - PAST SURGICAL HISTORY OF 1990s L foot surgery pin for fracture - PAST SURGICAL HISTORY OF Removed bone spurs at B/[facility] FAMILY HISTORY Problem Relation Age of Onset - Ischemic Heart Disease Mother - DM [Other] [OTHER] Mother - Osteoporosis Sister Social History Substance Use Topics - Smoking status: Never Smoker - Smokeless tobacco: Never Used Comment: Patient NEVER smoked - Alcohol use Yes Comment: 1-2 drinks per month Past medical history, appointments, medications, allergies reviewed. Pertinent Lab/Diagnostic Studies are reviewed and discussed today Current Outpatient Prescriptions: - simvastatin (ZOCOR) 20 mg tablet - amitriptyline (ELAVIL) 50 mg tablet - amLODIPine (NORVASC) 5 mg tablet - levothyroxine (SYNTHROID) 50 mcg tablet - pantoprazole DR (PROTONIX) 40 mg tablet - Ranitidine HCl 150 mg capsule Review of Systems CONSTITUTIONAL: No fevers, chills night sweats, unintended weight loss CARDIOVASCULAR: No chest pain, dyspnea, palpitations, orthopnea, PND, ankle edema. PULM: No dyspnea, unexplained cough. GI: No dysphagia/odynophagia, problematic reflux, constipation, diarrhea, changes in stool habits, hematochezia, melena. : No new urinary complaints, including dysuria, gross hematuria or pyuria. NEURO: No new balance problems, peripheral weakness/paresthesias or numbness of concern. Physical Exam BP 134/74 (BP Site: Left Arm, BP Position: Sitting, BP Cuff Size: Regular Adult) Pulse 95 Resp 12 Ht 149.9 cm (4' 11) Wt 57.6 kg (127 lb) SpO2 97% BMI 25.65 kg/m? General appearance: Well appearing, alert, in no acute distress, well nourished. Skin: Skin color, texture, turgor normal, no suspicious rashes or lesions Head: Normocephalic, no masses, lesions, tenderness or abnormalities Eyes: Anicteric sclera. Pupils are equally round and reactive to light. Extraocular movements are intact. Lungs: Lungs clear to auscultation. No wheezing, rhonchi, rales Heart: RRR without murmur, gallop, or rubs. ASSESSMENT/PLAN: 1. Breast cancer screening by mammogram - ICD9: V76.12, ICD10: Z12.31 (primary diagnosis) - Encouraged monthly BSE - Follow up for annual exam in one year. - LORIE SCREENING 2. 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 - LEVOTHYROXINE 50 MCG TABLET - LIPID PANEL BASIC - TSH BLD 3. Personal history of radiation therapy - ICD9: V15.3, ICD10: Z92.3 She is doing better over all. 4. Essential hypertension - ICD9: 401.9, ICD10: I10 - good control - Recommended regular aerobic exercise. - Recommend home blood pressure monitoring, to bring results in on next visit - Goal of BP <130/80 - LIPID PANEL BASIC LORI PERALTA MD CNOV Observed: 12/07/2017 Status: COMPLETED Source: [place] 9:00 AM [facility] REPOSITORY Office Visit (INTMWS) GARRY GALLEGO ([id number]) 1950 F Date Time Provider Department 12/07/17 9:00 AM LORI PERALTA INTMWS During your visit today, we recorded the following information about you: Pulse Respiration Blood pressure Weight 95/minute 12/minute 134/74 57.6 kg Height 1.499 m Ivory Sandersamirah [facility] 12/07/2017 9:17 AM Signed h/o radiation left side of face. Patient is having dental procedure and is having to get 30 bariatric treatments to make sure that there is blood flow after dental procedure. Being done at [facility] wound center. LORI PERALTA MD 12/07/2017 10:44 AM Signed Reason for Visit Patient presents with: Established Patient: 6 mnth follow up- refills Garry Gallego is a 67 year old female who presents here today for Above Complaints.. Health Maintenance DTAP,TDAP,TD(1 - Tdap) MAMMOGRAM HPI She had severe radiation in the past so she would have to have a scan every 4 months due to dental issues.... So she decided not to do the risedronate. She will be undergoing hyperbaric treatment She has got a pill box and gotten herself organized and will start taking her pills would need to recheck the tsh. Has given up sugars and milk products, her reflux is resovled. ? BP is well controlled on current regimen of medicines which is tolerated well. No significant side effects. Lipids are normal, reviewed test results with patient Who takes medications regularly and has no side effects. No problem-specific Assessment AND Plan notes found for this encounter. PAST MEDICAL HISTORY Diagnosis Date - Chemotherapy follow-up examination - EAR AND HEARING EXAM 08/20/2005 - Hyperlipidemia - Hypertension - Hypothyroidism s/p radioactive iodine for hyperthyroidism - Malignant neoplasm of cheek mucosa (HCC) - Personal history of malignant neoplasm of other and unspecified parts of oral cavity and pharynx - Radiotherapy follow-up examination - Secondary and unspecified malignant neoplasm of lymph nodes of head, face, and neck - Sleep disturbances On amitriptyline for anxiety induced insomnia - Unspecified gingival and periodontal disease PAST SURGICAL HISTORY Procedure Laterality Date - CARPAL TUNNEL Bilateral - NEUROPLASTY/TRANSPOSITION,ULNAR NV/ELBOW Left - PAST SURGICAL HISTORY OF 07/2005 Esophagoscopy, examination under anesthesia oral cavity/oropharynx with multiple left buccal biopsies/tumor mapping and rigid bronchoscopy. - PAST SURGICAL HISTORY OF L foot surgery pin for fracture - PAST SURGICAL HISTORY OF [facility] H[facility] Problem Relation Age of Onset - Ischemic Heart Disease Mother - DM [Other] [OTHER] Mother - Osteoporosis Sister Social History Substance Use Topics - Smoking status: Never Smoker - Smokeless tobacco: Never Used Comment: Patient NEVER smoked - Alcohol use Yes Comment: 1-2 drinks per month Past medical history, appointments, medications, allergies reviewed. Pertinent Lab/Diagnostic Studies are reviewed and discussed today Current Outpatient Prescriptions: - simvastatin (ZOCOR) 20 mg tablet - amitriptyline (ELAVIL) 50 mg tablet - amLODIPine (NORVASC) 5 mg tablet - levothyroxine (SYNTHROID) 50 mcg tablet - pantoprazole DR (PROTONIX) 40 mg tablet - Ranitidine HCl 150 mg capsule Review of Systems CONSTITUTIONAL: No fevers, chills night sweats, unintended weight loss CARDIOVASCULAR: No chest pain, dyspnea, palpitations, orthopnea, PND, ankle edema. PULM: No dyspnea, unexplained cough. GI: No dysphagia/odynophagia, problematic reflux, constipation, diarrhea, changes in stool habits, hematochezia, melena. : No new urinary complaints, including dysuria, gross hematuria or pyuria. NEURO: No new balance problems, peripheral weakness/paresthesias or numbness of concern. Physical Exam BP 134/74 (BP Site: Left Arm, BP Position: Sitting, BP Cuff Size: Regular Adult) Pulse 95 Resp 12 Ht 149.9 cm (4' 11) Wt 57.6 kg (127 lb) SpO2 97% BMI 25.65 kg/m? General appearance: Well appearing, alert, in no acute distress, well nourished. Skin: Skin color, texture, turgor normal, no suspicious rashes or lesions Head: Normocephalic, no masses, lesions, tenderness or abnormalities Eyes: Anicteric sclera. Pupils are equally round and reactive to light. Extraocular movements are intact. Lungs: Lungs clear to auscultation. No wheezing, rhonchi, rales Heart: RRR without murmur, gallop, or rubs. ASSESSMENT/PLAN: 1. Breast cancer screening by mammogram - ICD9: V76.12, ICD10: Z12.31 (primary diagnosis) - Encouraged monthly BSE - Follow up for annual exam in one year. - LORIE SCREENING 2. 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 - LEVOTHYROXINE 50 MCG TABLET - LIPID PANEL BASIC - TSH BLD 3. Personal history of radiation therapy - ICD9: V15.3, ICD10: Z92.3 She is doing better over all. 4. Essential hypertension - ICD9: 401.9, ICD10: I10 - good control - Recommended regular aerobic exercise. - Recommend home blood pressure monitoring, to bring results in on next visit - Goal of BP <130/80 - LIPID PANEL BASIC LORI PERALTA MD Referring Provider: LORI PERALTA [[id number]] Allergies As of Date: 12/07/2017 Noted Allergy Reaction FOSAMAX (ALENDRONATE SODIUM) 10/16/2006 5 - Intolerance 8 - GI Upset ACTONEL (RISEDRONATE SODIUM) 01/22/2016 17 - Myalgia Comments: Feels sick on the medication and does not want to take it. Patient denies taking this medication as of 04/16/2016 BONIVA (IBANDRONATE) 05/02/2008 8 - GI Upset Date Reviewed: 12/07/2017 Reviewed by: Ivory Thomson LPN - Fully Assessed Reason for Visit: Established Patient [175] Cmt: 6 mnth follow up- refills Primary Visit Diagnosis:Breast cancer screening by mammogram [Z12.31] Other Visit Diagnoses:Postablative hypothyroidism [E89.0] Personal history of radiation therapy [Z92.3] Essential hypertension [I10] Mixed hyperlipidemia [E78.2] Order(s):LORIE SCREENING [[id number]] Order #: [id number] FUTURE levothyroxine (SYNTHROID) 50 mcg tabletTake 1 tablet by mouth once daily. Take on empty stomach. For Thyroid.Disp: 30 tabletRfl: 0 TSH BLD [TS] Order #: [id number] FUTURE Prescriptions as of 12/07/2017 Sig: LEVOTHYROXINE 50 MCG TABLET Take 1 tablet by mouth once d* SIMVASTATIN 20 MG TABLET Take 1 tablet by mouth daily * AMITRIPTYLINE 50 MG TABLET Take 1 tablet by mouth daily * AMLODIPINE 5 MG TABLET Take 1 tablet by mouth once d* X RANITIDINE 150 MG CAPSULE Take 1 capsule by mouth daily* Problem List As Of Date 12/07/2017 Noted Resolved EAR AND HEARING EXAM [V72.1] INVALID FOR* Personal history of malignant neoplasm of other*INVALID FOR*12/02/2013 Radiotherapy follow-up examination [Z09] INVALID FOR*12/02/2013 Chemotherapy follow-up examination [Z09] INVALID FOR*12/02/2013 Malignant neoplasm of cheek mucosa (HCC) [C06.0]INVALID FOR*12/02/2013 Secondary and unspecified malignant neoplasm of*INVALID FOR*12/02/2013 Other Speech Disturbance [R47.89] INVALID FOR* Postablative hypothyroidism [E89.0] INVALID FOR* More... More... 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 History of cancer surgery [Z98.890] INVALID FOR* Personal history of radiation therapy [Z92.3] INVALID FOR* MALIG AMARA LYMPH-HEAD/NECK [C77.0] INVALID FOR*10/09/2015 Essential hypertension [I10] INVALID FOR* More... Osteoporosis [M81.0] INVALID FOR* More... Gastroesophageal reflux disease without esophag*INVALID FOR* More... Visit Notes: >> Ivory Thomson LPN ThuDecember 07, 2017 8:59 AM Status: Signed h/o radiation left side of face. Patient is having dental procedure and is having to get 30 bariatric treatments to make sure that there is blood flow after dental procedure. Being done at [facility] wound center. Prescriptions ordered this encounter Disp Refills Start End LEVOTHYROXINE 50 MCG TABLET 30 t* 0 12/07/2017 Route: ORAL Sig: Take 1 tablet by mouth once daily. Take on empty stomach. For Thyroid. Medications Discontinued During This Encounter levothyroxine (SYNTHROID) 50 mcg tab* 30 t* 0 06/16/2017 12/07/2017 Route: ORAL Sig: Take 1 tablet by mouth once daily. Take on empty stomach. For Thyroid. Disc: Reason for discontinue is not on file. pantoprazole DR (PROTONIX) 40 mg tab* 30 t* 2 06/16/2017 12/07/2017 Route: ORAL Sig: Take 1 tablet by mouth once daily. Disc: Reason for discontinue is not on file. Encounter Status:Closed by LORI PERALTA MD on 12/07/17 MATTI Observed: 11/24/2017 Status: COMPLETED Source: [place] 12:00 AM [facility] REPOSITORY Patient Outreach (INTMWH) GARRY GALLEGO ([id number]) 1950 F Date Time Provider Department 11/24/17 LORI PERALTA [facility]LY [facility], [facility] During your visit today, we recorded the following information about you: Allergies As of Date: 11/24/2017 Noted Allergy Reaction FOSAMAX (ALENDRONATE SODIUM) 10/16/2006 5 - Intolerance 8 - GI Upset ACTONEL (RISEDRONATE SODIUM) 01/22/2016 17 - Myalgia Comments: Feels sick on the medication and does not want to take it. Patient denies taking this medication as of 04/16/2016 BONIVA (IBANDRONATE) 05/02/2008 8 - GI Upset Date Reviewed: 06/23/2017 Reviewed by: Priti Lopez LPN - Fully Assessed Visit Diagnosis:Medication management [Z79.899] Order(s):LIPID PANEL BASIC [SQLIPB] Order #: [id number] FUTURE Prescriptions as of 11/24/2017 Sig: SIMVASTATIN 20 MG TABLET Take 1 tablet by mouth daily * AMITRIPTYLINE 50 MG TABLET Take 1 tablet by mouth daily * AMLODIPINE 5 MG TABLET Take 1 tablet by mouth once d* X LEVOTHYROXINE 50 MCG TABLET Take 1 tablet by mouth once d* X PANTOPRAZOLE 40 MG TABLET,DEL* Take 1 tablet by mouth once d* X RANITIDINE 150 MG CAPSULE Take 1 capsule by mouth daily* Problem List As Of Date 11/24/2017 Noted Resolved EAR AND HEARING EXAM [V72.1] INVALID FOR* Personal history of malignant neoplasm of other*INVALID FOR*12/02/2013 Radiotherapy follow-up examination [Z09] INVALID FOR*12/02/2013 Chemotherapy follow-up examination [Z09] INVALID FOR*12/02/2013 Malignant neoplasm of cheek mucosa (HCC) [C06.0]INVALID FOR*12/02/2013 Secondary and unspecified malignant neoplasm of*INVALID FOR*12/02/2013 Other Speech Disturbance [R47.89] INVALID FOR* Postablative hypothyroidism [E89.0] INVALID FOR* More... More... 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 History of cancer surgery [Z98.890] INVALID FOR* Personal history of radiation therapy [Z92.3] INVALID FOR* MALIG AMARA LYMPH-HEAD/NECK [C77.0] INVALID FOR*10/09/2015 Essential hypertension [I10] INVALID FOR* More... Osteoporosis [M81.0] INVALID FOR* More... Gastroesophageal reflux disease without esophag*INVALID FOR* More... Encounter Status:Closed by EPIC, PRODUSER on 04/30/18 CHEST PA AND LATERAL Observed: 11/19/2017 Status: F Source: [place] 10:05 AM [facility] REPOSITORY [facility] Imaging Services [address] [place] [address] Chest PA and Lateral MR#: [id number] Acct: [id number] Name: GARRY GALLEGO Cecilia Rep #: [id number] : 1950 F 67 From: Mike South DO PCP: Lori Peralta MD Status: REG RCR Study: Chest PA and Lateral Date of Exam: 11/19/17 Exam# [id number] Ordering Dr: Reynaldo Ceja MD STUDY: X-RAY CHEST REASON FOR EXAM: Female, 67 years old. hbo therapy TECHNIQUE: PA and lateral views of the chest. COMPARISON: None. FINDINGS: There is hyperinflation of the lungs consistent with chronic obstructive lung disease (COPD). Lungs are clear. There is no demonstrated pleural abnormality. Normal size heart. Normal mediastinum and leandro. Normal visualized pulmonary arteries. Normal visualized aortic arch and descending thoracic aorta. There are diffuse degenerative changes of the visualized thoracic spine. There is degenerative osteoarthritis of the bilateral shoulders. There is no demonstrated abnormality of the visualized soft tissue structures of the upper abdomen. RAD/Chest PA and Lateral IMPRESSION: COPD. Lungs are clear. Electronically Signed: Mike South DO at 12:29 EDT Tel , Service support , CC: Lori Peralta MD; Reynaldo Ceja MD Seaweed [employer]vester: Signed WOUND CTR HISTORY Observed: 11/17/2017 Status: F Source: [place] PHYSICAL 10:23 AM [facility] REPOSITORY [facility] [address] [place] [id number] Wound Ctr History AND Physical 11/17/17 0959 MR#: [id number] Acct: [id number] Name: GARRY GALLEGO Rep #: [id number] : 1950 67 From: Reynaldo Ceja MD PCP: Lori Peralta MD Status: REG RCR Y Location: WC (1) Hypothyroidism Status: Chronic Current Visit: No Code(s): E03.9 - Hypothyroidism, unspecified (2) Hypertension Status: Chronic Current Visit: No Qualifiers: Hypertension type: essential hypertension Qualified Code(s): I10 - Essential (primary) hypertension Code(s): I10 - Essential (primary) hypertension (3) GERD (gastroesophageal reflux disease) Status: Chronic Current Visit: No Code(s): K21.9 - Gastro- esophageal reflux disease without esophagitis (4) Hyperlipidemia Status: Chronic Current Visit: No Code(s): E78.5 - Hyperlipidemia, unspecified (5) History of oral cancer Status: Chronic Current Visit: Yes Code(s): Z85.819 - Personal history of malignant neoplasm of unspecified site of lip, oral cavity, and pharynx (6) History of radiation to head and neck region Status: Chronic Current Visit: Yes Code(s): Z92.3 - Personal history of irradiation (7) Osteoradionecrosis Status: Chronic Current Visit: Yes Code(s): M87.30 - Other secondary osteonecrosis, unspecified bone; Y84.2 - Radiological procedure and radiotherapy as the cause of abnormal reaction of the patient, or of later complication, without mention of misadventure at the time of the procedure (8) Osteoradionecrosis of jaw Status: Chronic Current Visit: Yes Code(s): M27.2 - Inflammatory conditions of jaws History of Present Illness Date of Service: 11/17/17 Chief Complaint: Osteoradionecrosis of the jaw History of Wound: This is a 67-year-old female with a 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 The patient was treated by radiation therapy and chemotherapy. Radiation therapy was administered in 2005, and the patient was treated with 35 double radiation treatments. Documentation from the [facility] Department of Radiation Oncology is available, and has been reviewed. The patient received a dose of 6800 cGy in 34 fractions of 200 cGy each using 6 MV photons. This was followed by a two-week inpatient course of intensive chemotherapy. As result of the aforementioned treatments, the patient's squamous cell oral cancer responded, and her oral cancer was eradicated. 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 According to the patient, she tolerated hyperbaric oxygen therapy well, without complications. The patient presents now as a referral from her dentist/oral surgeon, and is now in need of a tooth extraction from the left mandible. It is felt that the patient would be best managed by administration of hyperbaric oxygen therapy by a Chapin protocol, in tandem with the patient's anticipated tooth extraction. As mentioned, the patient has previously undergone hyperbaric oxygen therapy in the past, without complications or problems. A thorough review has been undertaken of the patient's past medical history. There is no history of barotrauma. There is no history of confinement anxiety. There is no history of significant medical problems related to the hematological or endocrine systems. Patient has no history of pulmonary disease or pulmonary trauma. She has flown in aircraft commercially, without problems with either ears or pulmonary system. As a result of the damage to the patient's left maxillary sinus due to prior radiation treatments, patient wears an oral prosthesis fashioned by her oral surgeon. Past Medical History Past Medical History: Chronic Problems Hypothyroidism (Chronic) Hypertension (Chronic) GERD (gastroesophageal reflux disease) (Chronic) Hyperlipidemia (Chronic) History of oral cancer (Chronic) History of radiation to head and neck region (Chronic) Osteoradionecrosis (Chronic) Osteoradionecrosis of jaw (Chronic) Past Medical History: Patient has a history of hypothyroidism, which occurred as a result of thyroid ablation by radioactive iodine in the past. She has a history of hypertension, gastroesophageal reflux disease, and hyperlipidemia. Her history is negative for myocardial infarction, congestive heart failure, cerebrovascular accident, diabetes mellitus, and renal disease. Her history is also negative for pulmonary disease. Surgical History: - - The patient has a history of bilateral carpal tunnel release. She is a Ab0. Allergies/Adverse Reactions: Allergies No Known Allergies Allergy (Verified 11/17/17 08:37) Home Medications: Ambulatory Orders Medication Instructions Recorded Amitriptyline HCl 50 mg PO DAILY 11/17/17 - Family History Paternal - - Patient's father at the age of 73 with a history of emphysema. The patient's mother at the age of 53 from a myocardial infarction. Social History: The patient is a retired subcontract manager. She denies the use of tobacco products. She consumes alcoholic beverages occasionally. Lives: Spouse/ Significant Other Smoking Status: Never smoker Tobacco Use: Non-smoker Alcohol: Occasional Drugs: None Review of Systems Constitutional: Denies: Chills, Fever, Weight Change Eyes: Denies: Pain, Vision Change HEENT: Denies: Difficulty Hearing, Difficulty Swallowing, Sinus Congestion Cardiovascular: Denies: Chest Pain, Palpitations Respiratory: Denies: Cough, Shortness of Breath Gastrointestinal: Denies: Diarrhea, Nausea, Vomiting Genitourinary: Denies: Dysuria, Hematuria Endocrine: Denies: Heat/ Cold Intolerance, Polydipsia, Polyuria Hematologic/ Lymphatic: Denies: Easy Bruising, Easy Bleeding - Physical Exam Vital Signs Temp Pulse Resp BP 98.9 F 93 16 149/90 H 11/17/17 08:53 11/17/17 08:53 11/17/17 08:53 11/17/17 08:53 General: Alert, Oriented x3, Cooperative, No apparent distress, Well developed, Well nourished HEENT: Atraumatic, PERRLA, EOMI, Normocephalic, TM's Clear Oral: Moist Mucosa, - - The floor of the left maxillary sinus is absent Neck: Supple, No JVD, Negative Carotid Bruits, Negative Hepatojugular Reflux, No Nodes, No Nuchal Rigidity, Trachea Midline Lungs: Clear to auscultation, Normal air movement, No rhonchi, No wheeze, No rales Cardiovascular: Regular rate, Regular Rhythm, Normal S1, Normal S2, No murmurs Abdomen: Soft, Non Tender, Non-Distended Extremities: No clubbing, No cyanosis, No edema Skin: No rashes Wound Measurements and Assessment - Nurse 2 - General Ulcer CM Notes Start: 11/17/17 08:33 Freq: Status: Active Protocol: Activity Type Activity Date Activity User E-Sign Co-Sign Detail Recorded Client Recorded Date Recorded By Document 11/17/17 09:49 LEONOR [id number] 11/17/17 09:53 LEONOR W[facility] Center Nurse 2 Musculoskeletal: No Muscle Wasting Neurological: Cranial nerves II-XII grossly intact, Neuro grossly intact Psych/Mental Status: Normal Affect, Appropriate, Alert and oriented to time, place, person, mood and affect Debridement Note Post-Debridement Measurements/Treatment - Nurse 2 - General Ulcer CM Notes Start: 11/17/17 08:33 Freq: Status: Active Protocol: Activity Type Activity Date Activity User E-Sign Co-Sign Detail Recorded Client Recorded Date Recorded By Document 11/17/17 09:49 LEONOR [id number] 11/17/17 09:53 LEON[facility] Wound Center Nurse 2 [facility] CONSULT -Time 09:49 -Correct Patient Yes -Correct Side, Site, Position Yes -Correct Procedure Yes No debridement was completed today Assessment/Plan Active Problems History of oral cancer (Chronic) History of radiation to head and neck region (Chronic) Osteoradionecrosis (Chronic) Osteoradionecrosis of jaw (Chronic) Assessment: This is a 67-year-old female with 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 The patient received 35 courses of radiation therapy in 2005, followed by a 2 week course of intensive inpatient chemotherapy. She developed significant osteoradionecrosis as result of her radiation treatments, and was treated with 30 sessions of hyperbaric oxygen therapy, which were well-tolerated, and resulted in significant improvement. Patient now presents with a need for left mandibular dental extraction, and is felt to be a candidate for hyperbaric oxygen therapy by means of the hurtado protocol in conjunction with her dental extraction. There appear to be no specific contraindications to hyperbaric oxygen therapy. Indeed, she appears to be a candidate for hyperbaric oxygen therapy in conjunction with her upcoming anticipated dental extraction. Plan: Patient appears to be a candidate for hyperbaric oxygen therapy by means of the Chapin protocol. Hyperbaric oxygen therapy, its indications and risks, and expected effects, have been thoroughly explained to the patient and her . They both appear well acquainted with hyperbaric oxygen therapy, both having been previously treated by HBO therapy due to radiation injuries. We will appeal to the patient's commercial insurer to obtain preauthorization, following which hyperbaric oxygen therapy will be initiated by means of the Chapin protocol. We will coordinate the patient's treatments with the patient's oral surgeon. The patient is not a smoker. Influenza vaccine was not administered today. Patient stands 4 feet 11 inches tall. She weighs 127 pounds. Her BMI is 25.6, which places her in the overweight category. Weight loss has been recommended. 11/17/17 1023 <Electronically signed by Reynaldo Ceja MD> Date Reynaldo Ceja MD CC: Signed OBSOLETE Observed: 08/09/2017 Status: COMPLETED Source: [place] 12:00 AM [facility] REPOSITORY Refill (INTMWS) GARRY GALLEGO ([id number]) 1950 F Date Time Provider Department 08/09/17 LORI PERALTA During your visit today, we recorded the following information about you: Jerod Olea LPN 08/11/2017 8:54 AM Signed Patient's request for medication is as follows: Refused Prescriptions Disp Refills omeprazole (PRILOSEC) 20 mg capsule [Pharmacy Med Name: OMEPRAZOLE 20MG CAP] 30 capsule 3 Sig: TAKE ONE CAPSULE BY MOUTH ONCE DAILY BEFORE BREAKFAST, 1/2 HOUR BEFORE MEAL MARYBETH: No Refused By: JEROD OLEA LPN Reason for Refusal: Change not appropriate Reason for Refusal Comment: patient switched to a different medication 05/2017 Prescription(s) as above. Please process accordingly. Jerod Olea LPN Allergies As of Date: 08/09/2017 Noted Allergy Reaction FOSAMAX (ALENDRONATE SODIUM) 10/16/2006 5 - Intolerance 8 - GI Upset ACTONEL (RISEDRONATE SODIUM) 01/22/2016 17 - Myalgia Comments: Feels sick on the medication and does not want to take it. Patient denies taking this medication as of 04/16/2016 BONIVA (IBANDRONATE) 05/02/2008 8 - GI Upset Date Reviewed: 06/23/2017 Reviewed by: Priti Lopez LPN - Fully Assessed Reason for Visit: Refill Request [94] Prescriptions as of 08/09/2017 Sig: SIMVASTATIN 20 MG TABLET Take 1 tablet by mouth daily * AMITRIPTYLINE 50 MG TABLET Take 1 tablet by mouth daily * AMLODIPINE 5 MG TABLET Take 1 tablet by mouth once d* LEVOTHYROXINE 50 MCG TABLET Take 1 tablet by mouth once d* PANTOPRAZOLE 40 MG TABLET,DEL* Take 1 tablet by mouth once d* RANITIDINE 150 MG CAPSULE Take 1 capsule by mouth daily* Problem List As Of Date 08/09/2017 Noted Resolved EAR AND HEARING EXAM [V72.1] INVALID FOR* Personal history of malignant neoplasm of other*INVALID FOR*12/02/2013 Radiotherapy follow-up examination [Z09] INVALID FOR*12/02/2013 Chemotherapy follow-up examination [Z09] INVALID FOR*12/02/2013 Malignant neoplasm of cheek mucosa (HCC) [C06.0]INVALID FOR*12/02/2013 Secondary and unspecified malignant neoplasm of*INVALID FOR*12/02/2013 Other Speech Disturbance [R47.89] INVALID FOR* Postablative hypothyroidism [E89.0] INVALID FOR* More... More... 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 History of cancer surgery [Z98.890] INVALID FOR* Personal history of radiation therapy [Z92.3] INVALID FOR* MALIG AMARA LYMPH-HEAD/NECK [C77.0] INVALID FOR*10/09/2015 Essential hypertension [I10] INVALID FOR* More... Osteoporosis [M81.0] INVALID FOR* More... Gastroesophageal reflux disease without esophag*INVALID FOR* More... Encounter Status:Closed by JEROD OLEA LPN on 08/11/17 ALLERGIES ALLERGIES DATE TYPE / NAME / CODE REACTION SEVERITY SOURCE CODE 11/17/2017 Drug No Known Unknown [facility] Allergy/41 Allergies/[id number] [facility] [id number]( 388(RXNORM) Hospital OMED CT) Repository 01/22/2016 DRUG RISEDRONATE Myalgia [facility] INGREDI/41 SODIUM [facility] [id number](SN Repository OMED CT) 05/02/2008 DRUG/72304 IBANDRONATE GI UPSET [facility] 1003(SNOME [facility] D CT) Repository 10/16/2006 DRUG ALENDRONATE INTOLERANCE Med [facility] INGREDI/41 SODIUM [facility] [id number](SN Repository OMED CT) ENCOUNTERS ENCOUNTERS ADMIT/DISCHARGE ACCOUNT ADMITTING ENCOUNTER LOCATION SOURCE NUMBER [facility] 07/07/2018 [id number] [facility] 06/29/2018 [id number] [facility] 06/24/2018 [id number] Ambulatory BMSBuilding:Cristina Coon MS.CF[facility] Repository 06/23/2018 [id number] Ambulatory BMSBuilding:W [facility] Repository 06/18/2018/06/18/20 [id number] Ambulatory [facility] [place] ing:WC Repository 06/17/2018 [id number] Ambulatory BMSBuilding:[facility] Repository 06/16/2018 [id number] Ambulatory BMSBuilding:[facility] Repository 06/14/2018 [id number] Ambulatory BMSBuilding:Cristina Coon MS.CF.[facility] Repository 06/09/2018 [id number] Ambulatory BMSBuilding:[facility] Repository 06/08/2018 [id number] Ambulatory BMSBuilding:Cristina Coon MS.CF[facility] Repository 06/03/2018 [id number] Ambulatory BMSBuilding:[facility] Repository 06/02/2018 [id number] Ambulatory BMSBuilding:[facility] Repository 05/31/2018 [id number] Ambulatory BMSBuilding:Cristina Coon MS.CF[facility] Repository 05/27/2018 [id number] Ambulatory BMSBuilding:[facility] Repository 02/08/2018/02/09/20 [id number] Ambulatory [address] Repository 01/26/2018 [id number] [facility] ing[facility]OPBI Repository 12/07/2017/12/08/19 [id number] Ambulatory [address] Repository 12/07/2017/12/09/19 [id number] Ambulatory [address] Repository 11/19/2017 [id number] [facility] ing:RAD Repository PAYERS PAYERS ENCOUNTER GUARANTOR PAYER SUBSCRIBER SOURCE 07/07/2018 DYLAN [id number] N Insurance:BROCK HEARDB: Community [place]icy [id number]: Repository [address]Qyv: (303) [id number] [phone] () Date:5254-08-97UB[address] [address]EI: 07/07/2018 Secondary NOT GIVENUNK [facility] Insurance:SELF PAY [facility] Number: Effective Repository Date:2018-06-19 06/29/2018 DYLAN [id number] N Insurance:HUMANA PHILLIPSDOB: Community [place] PPOPolicy [id number] Number: Repository [address]Tpq: (330 [id number] [phone] (HP) Date:7425-50-20XY [address] [address]BC: 06/29/2018 Secondary NOT GIVENUNK [facility] Insurance:SELF PAY [facility] Number: Effective Repository Date:2018-06-29 06/24/2018 DYLAN Primary GARRY Coon [id number] N Insurance:HUMANA PHILLIPSDOB: Community [place] PPOPolicy [id number] Number: Repository [id number]: 330 [id number] [phone] (HP) Date:2224-72-47JU [address]46[address]WP: 06/24/2018 Secondary NOT GIVENUNK [facility] Insurance:SELF PAY [facility] Number: Effective Repository Date:2018-06-24 06/23/2018 DYLAN Primary GARRY Coon [id number] N Insurance:HUMANA PHILLIPSDOB: Community [place] PPOPolicy [id number] Number: Repository [address]Sar: 330 [id number] [phone] (HP) Date:2526-32-74WX [place] 206[address]WP: 06/23/2018 Secondary NOT GIVENUNK [facility] Insurance:SELF PAY [facility] Number: Effective Repository Date:2018-06-23 06/18/2018 DYLAN Primary GARRY Coon [id number] N Insurance:HUMANA PHILLIPSDOB: Community [place] PPOPolicy [id number] Number: Repository [address]Jbe: 330 [id number] [phone] (HP) Date:0709-23-80IG [address] [address]AE: 06/18/2018 Secondary NOT GIVENUNK [place] Insurance:SELF PAY [facility] Number: Effective Repository Date:2018-05-26 06/17/2018 DYLAN Primary GARRY Brooks Jaymie [id number] N Insurance:HUMANA PHILLIPSDOB: Community [place] PPOPolicy [id number] Number: Repository [address]Vfx: 330 [id number] [phone] () Date:9767-79-32LA [address] [address]VM: 06/17/2018 Secondary NOT GIVENUNK [place] Insurance:SELF PAY [facility] Number: Effective Repository Date:2018-06-17 [facility] Jaymie [id number] N Insurance:HUMANA PHILLIPSDOB: Community [place] PPOPolicy [id number] Number: Repository [address]Qdm: 330 [id number] [phone] () Date:9422-53-52BP[address] [address]TS: 06/16/2018 Secondary NOT GIVENUNK [place] Insurance:SELF PAY [facility] Number: Effective Repository Date:2018-06-16 06/14/[facility] GARRY Brooks [place] [id number] N Insurance:HUMANA PHILLIPSDOB: Community [place] PPOPolicy [id number] Number: Repository [address]Qce: 330 [id number] [phone] () Date:9248-33-69EP[address] [address]UM: 06/14/2018 Secondary NOT GIVENUNK [place] Insurance:SELF PAY [facility] Number: Effective Repository Date:2018-06-14 06/09/2018 DYLAN [facility] GRARY Brooks [place] [id number] N Insurance:HUMANA PHILLIPSDOB: Community [place] PPOPolicy [id number] Number: Repository [address]Keb: (330 [id number] [phone] (HP) Date:6498-32-34BR [address] [address]BS: 06/09/2018 Secondary NOT GIVENUNK [place] Insurance:SELF PAY [facility] Number: Effective Repository Date:2018-06-09 06/08/2018 DYLAN Primary NOT GIVENUNK [facility] [id number] N Insurance:SELF PAY [place] Number: Effective Repository [address]Thq: (330) Date:2018-06-08 [phone] (HP) 06/03/2018 DYLAN Primary GARRY [id number] N Insurance:HUMANA PHILLIPSDOB: Community [facility] MEDICARE [facility] [id number] Number: Repository [id number]: (330 [id number] [phone] (HP) Date:9939-60-89SZ [address] [address]FN: 06/03/2018 Secondary NOT GIVENUNK [facility] Insurance:SELF PAY [facility] Number: Effective Repository Date:2018-06-03 06/02/2018 DYLAN Primary GARRY Brooks [place]mie [id number] N Insurance:HUMANA PHILLIPSDOB: Community [place] PPOPolicy [id number] Number: Repository [address]Vbr: (330) [id number] [phone] (HP) Date:7341-10-73SY[address] [address]CZ: 06/02/2018 Secondary NOT GIVENUNK [facility] Insurance:SELF PAY [facility] Number: Effective Repository Date:2018-06-02 05/31/2018 DYLAN Primary GARRY Cecilia Jaymie [id number] N Insurance:HUMANA PHILLIPSDOB: Community [place] PPOPolicy [id number] Number: Repository [phone]: (330) [id number] [phone] (HP) Date:8742-68-52RN [address] [id number]: 05/31/2018 Secondary NOT GIVENUNK [place] Insurance:SELF PAY [facility] Number: Effective Repository Date:2018-05-31 05/27/2018 DYLAN Primary [address]ARRY [id number] Insurance:HUMANA PHILLIPSDOB: [facility] [id number] Number: Repository [id number]: ([phone] [id number] [phone] (HP) Date:[id number] [address] [address]NY: 05/27/2018 Secondary NOT GIVENUNK [place] Insurance:SELF PAY [facility] Number: Effective Repository Date:2018-05-27 01/26/2018 DYLAN Primary GARRY Coon [id number] Insurance:HUMANA PHILLIPSDOB: [facility] [id number] Number: Repository [id number]: ([phone] [id number] [phone] (HP) Date:[id number] [address] [address]QP: 01/26/2018 Secondary NOT GIVENUNK [place] Insurance:SELF PAY [facility] Number: Effective Repository Date:2017-12-07 11/19/2017 GARRY J Primary GARRY Coon [id number] Insurance:HUMANA PHILLIPSDOB: [facility] [id number]: Repository [id number]: ([phone] [id number] [phone] (HP) Date:[id number] [address] [address]BO: 11/19/2017 Secondary NOT GIVENUNK [place] Insurance:SELF PAY [facility] Number: Effective Repository Date:2017-11-17
== END 2018-07-19 23:59 ==
LOC: WC 09:00
PROVIDERS: Family Provider Internal Medicine; PCP Internal Medicine; Visit Provider Internal Medicine
DX: M27.2 Inflammatory conditions of jaws (principal); Y84.2 Radiological procedure and radiotherapy as the cause of abnormal reaction of the patient, or of later complication, without mention of misadventure at the time of the procedure; K21.9 Gastro-esophageal reflux disease without esophagitis; E78.5 Hyperlipidemia, unspecified; I10 Essential (primary) hypertension; Z85.819 Personal history of malignant neoplasm of unspecified site of lip, oral cavity, and pharynx; E03.9 Hypothyroidism, unspecified; Z79.899 Other long term (current) drug therapy
CPT/HCPCS: 99183; G0277

== ENCOUNTER → 2019-06-08 11:45 | Outpatient (CLI) | payer MEDICARE, SELFPAY ==
--- NOTE | 2019-06-08 11:47 | BI_ITS ---
MAMMOGRAPHY - BILATERAL SCREENING REASON FOR EXAM: Female, 68 years old. Routine annual screening examination. PERTINENT HISTORY: Non-contributory. TECHNIQUE: Digital bilateral breast ruddy (3D mammographic acquisition) in the CC and MLO projections. 2-D mediolateral oblique (MLO) and craniocaudad (CC) views of both breasts were obtained. CAD: Full Field Digital Mammography with Computer Added Detection was performed. COMPARISON: Comparison is made with prior study dated January 26, 2018. FINDINGS: Breast Composition: The breasts are heterogeneously dense, which may obscure small masses. There are no dominant masses or suspicious calcifications. No other significant abnormalities are identified. There has been no significant change since the prior study. BI/SCREEN MAMM (CAD) W/RUDDY BILAT IMPRESSION: Stable bilateral screening mammogram. Yearly follow-up mammogram recommended. (A) ASSESSMENT CATEGORY: BIRADS Category 1: Negative. A letter regarding these results will be sent to the patient by the facility within 30 days. Approximately 10% of breast cancers are not detected by mammography. A normal mammogram should not delay biopsy of a clinically suspicious abnormality. [id number] Electronically Signed: Kvng Gonzalez, at 13:06 EST , Service support ,
== END ==
PROVIDERS: Family Provider Internal Medicine; PCP Internal Medicine; Referring Provider Internal Medicine; Visit Provider Internal Medicine
DX: Z12.31 Encounter for screening mammogram for malignant neoplasm of breast (principal); Z01.89 Encounter for other specified special examinations
CPT/HCPCS: 77063; 77067